=== PATIENT | male | born 1955 | race Caucasian/White ===

== ENCOUNTER 2017-09-24 19:53 | Inpatient (IN) | payer OTHER ==
[~2017-09-24] VITALS: Ht 180.3 cm; Wt 102.6 kg
[~2017-09-24 19:53] MED LIST: AMBIEN 5 MG TABL5 M1 PO; AUGMENTIN 875875 MG PO; BACTRIM DS TAB1 EACH PO; HYDROCODONE-AP1 EAC6 PO; IBUPROFEN 200200 M1 PO; LAMICTAL100 MG PO; LEVOTHYROXIN0.025 MG PO; LITHIUM CARBON300 M3 PO; MACROBID 100 M100 MG PO; NYSTATIN15 G3 TOP; OIL OF OREGAN1500 MG PO; OMEPRAZOLE20 M2 PO; OMEPRAZOLE40 MG PO; SIMVASTATIN40 MG PO; ULTRAM 50MG TAB50 MG PO; VENTOLIN HFA 1818 GM INH; ZPAK PO
[2017-09-24 20:01] VITALS: BP 166/84
[2017-09-24 20:56] LABS: HEMOGLOBIN 13.9 gm/dL (14.0-18.0); NUCLEATED RBCS 0 /100WBC
[2017-09-24 20:58] LABS: HEMATOCRIT 43.1 % (42.0-52.0); MCH 31.4 pg (26.0-34.0); MCHC 32.1 g/dL (28.0-37.0); MCV 97.6 fL (80.0-100.0); MPV 8.2 fl. (7.2-11.1); PLATELET COUNT* 340 thou/uL (150-400); RBC 4.41 mil/uL (4.50-6.00); WBC 10.8 thou/uL (4.0-11.0)
[2017-09-24 21:04] LABS: APTT 29.7 Seconds (25.0-31.3); CALCIUM 9.1 mg/dL (8.5-10.1); CREATININE 1.1 mg/dL (0.6-1.3); POTASSIUM 4.1 mmol/L (3.5-5.1)
[2017-09-24 21:08] LABS: ALBUMIN 3.3 g/dL (3.4-5.0); TOTAL BILIRUBIN 0.5 mg/dL (<0.1-1.0); TOTAL PROTEIN 7.8 g/dL (6.4-8.2)
[2017-09-24 21:25] LABS: ABSOLUTE BASOPHILS 0.1 thou/uL (0.0-0.2); ABSOLUTE EOSINOPHILS 0.2 thou/uL (0.0-0.7); ABSOLUTE LYMPHOCYTES 1.8 thou/uL (0.8-5.3); ABSOLUTE MONOCYTES 0.6 thou/uL (0.0-1.2)
[2017-09-24 21:26] LABS: PLATELET ESTIMATE ADEQUATE
[2017-09-24 23:00] VITALS: BP 130/68
[2017-09-24 23:10] VITALS: BP 133/91
[2017-09-25 09:09] LABS: ABSOLUTE BASOPHILS 0.2 thou/uL (0.0-0.2); ABSOLUTE EOSINOPHILS 0.3 thou/uL (0.0-0.7); ABSOLUTE LYMPHOCYTES 1.4 thou/uL (0.8-5.3); ABSOLUTE NEUTROPHILS 7.6 thou/uL (1.6-8.1); BASOPHILS 1.9 %; EOSINOPHILS 2.8 %; HEMATOCRIT 41.9 % (42.0-52.0); HEMOGLOBIN 13.5 gm/dL (14.0-18.0); LYMPHOCYTES 13.5 %; MCH 31.2 pg (26.0-34.0); MCHC 32.1 g/dL (28.0-37.0); MCV 97.3 fL (80.0-100.0); MONOCYTES 9.6 %; MPV 8.2 fl. (7.2-11.1); NUCLEATED RBCS 0 /100WBC; PLATELET COUNT* 317 thou/uL (150-400); POLYS 72.2 %; RBC 4.31 mil/uL (4.50-6.00); RDW-CV 14.1 % (10.5-14.5); WBC 10.5 thou/uL (4.0-11.0)
[2017-09-25 09:15] VITALS: BP 137/80
[2017-09-25 09:23] LABS: CALCIUM 8.6 mg/dL (8.5-10.1); CREATININE 1.1 mg/dL (0.6-1.3); POTASSIUM 4.7 mmol/L (3.5-5.1)
[2017-09-25 14:52] VITALS: BP 139/86
--- NOTE | 2017-09-25 16:44 | EKG ---
[place] [address] ELECTROCARDIOGRAM REPORT Name: AKBAR VALLADARES Room: [address] ADM IN .R.#: [id number] Admission: 09/24/17 Attend Phys: Juana Bolaños Discharge: Date of : 57 Report #: [id number] THIS REPORT FOR: //name// [facility] ED Test Date: 2017-09-24 Test Time: 20:42:23 Pat Name: AKBAR VALLADARES Department: Room: [facility] Gender: M [place] [employer]redge [employer] Barge: ADRIEN : 1955 Requested By: Billy Samayoa Order Number: [id number] MD: Jay Davidson Measurements Intervals [place] Rate: 99 P: 49 HI: 162 QRS: 90 QRSD: 110 T: -21 QT: 361 QTc: 464 Interpretive Statements Sinus rhythm early transition Probable inferior infarct, age indeterminate Baseline wander in lead(s) V3 No previous ECG available for comparison Electronically Signed On 09-25-2017 16:44:13 HOG STICKER by Jay Davidson [email or web address] <ELECTRONICALLY SIGNED> By: Jay Davidson MD, [facility] 09/25/17 1644 41 41 Jya Davidson MD, [facility] /EPI
[2017-09-26 00:24] VITALS: BP 184/85
[2017-09-26 02:07] LABS: GLYCOHEMOGLOBIN (HGB A1C) 5.5 % (4.8-5.6)
[2017-09-27] MEDS ORDERED: AUGMENTIN 875-1 EACH PO (13:58)
== END 2017-09-26 04:05 | disposition left against medical advice (07) | DRG 728 ==
LOC: M.ERS 19:53 → M.TBA-ER 21:22 → M.3W 21:22
PROVIDERS: Family Medicine; Internal Medicine; Physician Assistant; ADMIT Internal Medicine
PROC: 0H9AXZX Drainage of Inguinal Skin, External Approach, Diagnostic (ICD-10-PCS; principal; 2017-09-24)
DX: N48.22 Cellulitis of corpus cavernosum and penis (principal); E87.1 Hypo-osmolality and hyponatremia; N48.21 Abscess of corpus cavernosum and penis; E78.5 Hyperlipidemia, unspecified; K21.9 Gastro-esophageal reflux disease without esophagitis; E03.9 Hypothyroidism, unspecified; F31.9 Bipolar disorder, unspecified; F17.200 Nicotine dependence, unspecified, uncomplicated; Z23 Encounter for immunization; Z86.73 Personal history of transient ischemic attack (TIA), and cerebral infarction without residual deficits; Z90.49 Acquired absence of other specified parts of digestive tract; Z79.899 Other long term (current) drug therapy

== ENCOUNTER 2017-09-26 08:06 | Inpatient (IN) | payer OTHER ==
[~2017-09-26] VITALS: Ht 180.3 cm; Wt 102.5 kg
[2017-09-26 08:27] VITALS: BP 142/92
[2017-09-26 09:39] LABS: ABSOLUTE BASOPHILS 0.1 thou/uL (0.0-0.2); ABSOLUTE EOSINOPHILS 0.2 thou/uL (0.0-0.7); ABSOLUTE LYMPHOCYTES 1.4 thou/uL (0.8-5.3); ABSOLUTE MONOCYTES 0.7 thou/uL (0.0-1.2); ABSOLUTE NEUTROPHILS 6.9 thou/uL (1.6-8.1); EOSINOPHILS 2.1 %; HEMOGLOBIN 13.2 gm/dL (14.0-18.0); LYMPHOCYTES 15.1 %; MCH 31.5 pg (26.0-34.0); MCV 95.2 fL (80.0-100.0); MONOCYTES 7.7 %; MPV 7.8 fl. (7.2-11.1); NUCLEATED RBCS 0 /100WBC; PLATELET COUNT* 329 thou/uL (150-400); POLYS 74.1 %; RDW-CV 13.6 % (10.5-14.5); WBC 9.3 thou/uL (4.0-11.0)
[2017-09-26 09:54] LABS: ALBUMIN 2.9 g/dL (3.4-5.0); CALCIUM 8.8 mg/dL (8.5-10.1); POTASSIUM 4.1 mmol/L (3.5-5.1); TOTAL BILIRUBIN 0.2 mg/dL (<0.1-1.0); TOTAL PROTEIN 7.1 g/dL (6.4-8.2)
[2017-09-26 13:46] LABS: URINE BILIRUBIN NEGATIVE (Negative); URINE BLOOD NEGATIVE (Negative); URINE CLARITY CLEAR; URINE COLOR YELLOW; URINE GLUCOSE-RANDOM NEGATIVE (Negative); URINE KETONES NEGATIVE (Negative); URINE LEUKOCYTES NEGATIVE (Negative); URINE NITRITE NEGATIVE (Negative); URINE PROTEIN NEGATIVE (Negative); URINE SPECIFIC GRAVITY 1.015 (1.005-1.030); URINE UROBILINOGEN 0.2 E.U./dl (0.2-1.0)
[2017-09-26 13:57] VITALS: BP 144/78
[2017-09-26 17:52] VITALS: BP 133/72
[2017-09-26 18:15] VITALS: BP 140/73
[2017-09-26 23:00] VITALS: BP 142/83
[2017-09-27 05:57] LABS: ABSOLUTE BASOPHILS 0.1 thou/uL (0.0-0.2); ABSOLUTE EOSINOPHILS 0.3 thou/uL (0.0-0.7); ABSOLUTE LYMPHOCYTES 1.9 thou/uL (0.8-5.3); ABSOLUTE MONOCYTES 0.8 thou/uL (0.0-1.2); ABSOLUTE NEUTROPHILS 4.9 thou/uL (1.6-8.1); BASOPHILS 1.3 %; EOSINOPHILS 3.7 %; HEMATOCRIT 40.1 % (42.0-52.0); HEMOGLOBIN 13.3 gm/dL (14.0-18.0); LYMPHOCYTES 24.2 %; MCH 31.1 pg (26.0-34.0); MCHC 33.2 g/dL (28.0-37.0); MCV 93.8 fL (80.0-100.0); MONOCYTES 9.9 %; MPV 7.4 fl. (7.2-11.1); NUCLEATED RBCS 0 /100WBC; PLATELET COUNT* 337 thou/uL (150-400); POLYS 60.9 %; RBC 4.28 mil/uL (4.50-6.00); RDW-CV 13.4 % (10.5-14.5)
[2017-09-27 06:04] LABS: CALCIUM 8.8 mg/dL (8.5-10.1); POTASSIUM 4.6 mmol/L (3.5-5.1)
--- NOTE | 2017-09-27 10:50 | CON ---
[facility] [address] [place] [address] CONSULTATION Name: VALLADARESAKBAR Ridge Room: [address] IN M.R.#: [id number] Admission: 09/26/17 Attend Phys: Cleveland Bonilla MD Discharge: Date of : 57 Report #: [id number] THIS REPORT FOR: //name// CC: Cleveland Adams DATE OF SERVICE: 09/26/2017 INFECTIOUS DISEASE CONSULTATION ATTENDING PHYSICIAN: Cleveland Bonilla M.D. REASON FOR EVALUATION: Skin and soft tissue infection related to penis with abscess post-spontaneous drainage and operative debridement. HISTORY OF PRESENT ILLNESS: Chart reviewed, the patient examined. This is a 61-year-old apparently with history of bipolar disorder, who presented to the Emergency Room initially on 09/24/2017 and was hospitalized. He had to leave, but he returned 2 hours later yesterday. Over the last 7-10 days, he had noted initial papular-type lesion over the distal aspect of his penis along the shaft; this progressed. He had marked swelling, ultimately opened spontaneously. Blood cultures collected sterile thus far. There are no operative cultures. Empirically started on ceftriaxone and vancomycin. He denies any systemic illness. There is specific question about fevers and chills. Appetite has been good. No pulmonary or gastrointestinal-related complaints. ALLERGIES: None known. CURRENT MEDICATIONS: Include ceftriaxone, levothyroxine, lamotrigine, pantoprazole, zolpidem, enoxaparin, vancomycin and ondansetron. PAST MEDICAL HISTORY: History of a stroke, reflux, hyperlipidemia, hypothyroidism, bipolar and previous appendectomy. SOCIAL HISTORY: Smokes cigarettes, occasional ethanol. FAMILY HISTORY: Noncontributory. REVIEW OF SYSTEMS: As above. PHYSICAL EXAMINATION: GENERAL: He is pleasant, alert and cooperative. He is really in only mild distress, appears to be fairly well nourished. VITAL SIGNS: Temperature 99.7, pulse 90, respirations 16 and blood pressure 144/78. SKIN: Warm, [place] [address] CONSULTATION Name: AKBAR VALLADARES Ridge Room: [address] IN [facility]#: [id number] Admission: 09/26/17 Attend Phys: Cleveland Bonilla MD Discharge: Date of : 57 Report #: [id number] HEENT: Unremarkable. NECK: Supple. LUNGS: Clear to auscultation. HEART: Regular rate. I do not appreciate a murmur. ABDOMEN: Soft, nontender and nondistended. GENITALIA: Penis is markedly edematous. There is a lesion roughly 2 o'clock at the distal shaft. There is no overt purulence at this point. It does not particularly hurt him on palpation either. RECTAL: Deferred. LABORATORY DATA: Urinalysis negative. Lactic acid 1.0. Electrolytes: Sodium 140, potassium 4.1, chloride 105, bicarb is 25, BUN and creatinine 13 and 1.0, anion gap of 10 and glucose of 102. LFTs unremarkable. Albumin 2.9. Total protein 7.1. Estimated GFR of 76. CBC: White count 9.3, H and H 13.2 and 40.0 and platelets of 329,000. Blood cultures sterile thus far on occasions from 09/24/2017 as well as 09/26/2017 thus far. Hemoglobin A1c of 5.5. ASSESSMENT AND PLAN: Skin and soft tissue infection with abscess related to the penis. We will continue empiric antimicrobial therapy. Presume this is skin related. Presume Staph or strep etiology. It is presently minimally symptomatic at this point. Continue Pepcid, elevation of the penis and wound care as prescribed. <ELECTRONICALLY SIGNED> By: Umer Banuelos MD 09/27/17 1050 [id number] [id number] Banuelos MD /nt
[2017-09-27 12:13] VITALS: BP 142/83
[2017-09-27 12:55] VITALS: BP 156/91
[2017-09-27] MEDS ORDERED: AUGMENTIN 875-1 EACH PO (13:58)
== END 2017-09-27 14:30 | disposition home or self-care (01) | DRG 728 ==
LOC: M.ERS 08:06 → M.TBA-ER 09:14 → M.3W 09:14
PROVIDERS: Emergency Medicine Emergency Medical Services; Physician Assistant; ADMIT Internal Medicine
DX: N48.21 Abscess of corpus cavernosum and penis (principal); R65.10 Systemic inflammatory response syndrome (SIRS) of non-infectious origin without acute organ dysfunction; E78.5 Hyperlipidemia, unspecified; K21.9 Gastro-esophageal reflux disease without esophagitis; E03.9 Hypothyroidism, unspecified; F31.9 Bipolar disorder, unspecified; F17.210 Nicotine dependence, cigarettes, uncomplicated; Z86.73 Personal history of transient ischemic attack (TIA), and cerebral infarction without residual deficits; Z90.49 Acquired absence of other specified parts of digestive tract; Z79.899 Other long term (current) drug therapy

== ENCOUNTER 2019-01-07 17:16 | Inpatient (IN) | payer OTHER ==
[~2019-01-07] VITALS: Ht 180.3 cm; Wt 93.0 kg
[~2019-01-07 17:16] MED LIST changes: +AUGMENTIN 875-1 EACH PO
[2019-01-07 17:20] VITALS: BP 156/88
[2019-01-07 18:02] LABS: HEMATOCRIT 42.1 % (42.0-52.0); HEMOGLOBIN 14.2 gm/dL (14.0-18.0); MCH 29.8 pg (26.0-34.0); MCHC 33.6 g/dL (28.0-37.0); MCV 88.9 fL (80.0-100.0); MPV 7.2 fl. (7.2-11.1); NUCLEATED RBCS 0 /100WBC; PLATELET COUNT* 322 thou/uL (150-400); RBC 4.74 mil/uL (4.50-6.00); RDW-CV 14.7 % (10.5-14.5); WBC 21.1 thou/uL (4.0-11.0)
[2019-01-07 18:12] LABS: CALCIUM 9.1 mg/dL (8.5-10.1); CREATININE 1.2 mg/dL (0.6-1.3); POTASSIUM 4.2 mmol/L (3.5-5.1)
[2019-01-07 18:16] LABS: ALBUMIN 3.2 g/dL (3.4-5.0); TOTAL PROTEIN 8.9 g/dL (6.4-8.2)
[2019-01-07 18:21] LABS: ABSOLUTE LYMPHOCYTES 2.1 thou/uL (0.8-5.3); ABSOLUTE MONOCYTES 1.1 thou/uL (0.0-1.2); ABSOLUTE NEUTROPHILS 17.9 thou/uL (1.6-8.1); PLATELET ESTIMATE ADEQUATE
--- NOTE | 2019-01-07 18:55 | NUR ---
REPORT GIVEN TO ALICIA BOWENS WHO IS TO ASSUME PT CARE AT THIS TIME.
[2019-01-07 19:58] VITALS: BP 149/84
[2019-01-07 20:15] VITALS: BP 107/64
[2019-01-08] VITALS: BP 125/72
[2019-01-08 04:15] LABS: HEMOGLOBIN 12.5 gm/dL (14.0-18.0); MCH 29.3 pg (26.0-34.0); MCHC 32.8 g/dL (28.0-37.0); MCV 89.2 fL (80.0-100.0); MPV 7.7 fl. (7.2-11.1); RBC 4.26 mil/uL (4.50-6.00); RDW-CV 14.7 % (10.5-14.5); WBC 16.4 thou/uL (4.0-11.0)
[2019-01-08 04:40] LABS: ALBUMIN 2.3 g/dL (3.4-5.0); CALCIUM 8.8 mg/dL (8.5-10.1); CREATININE 1.1 mg/dL (0.6-1.3); MAGNESIUM 1.5 mg/dL (1.8-2.4); POTASSIUM 3.8 mmol/L (3.5-5.1); TOTAL BILIRUBIN 0.9 mg/dL (<0.1-1.0); TOTAL PROTEIN 7.6 g/dL (6.4-8.2)
--- NOTE | 2019-01-08 06:05 | NUR ---
PATIENT ARRIVED ON FLOOR FROM ER ABOUT 2014. PATIENT ADMISSION HISTORY AND ASSESSMENT WAS COMPLETED CHARTED. IV VANC WAS GIVEN ORDERED. PATIENT HAD A TEMP OF 101 UPON ARRIVAL.TYLENOL WAS GIVEN TEMP CAME DOWN TO NORMAL. PICTURES WERE TAKEN OF LEFT LEG CELLULITIS AND PLACED ON CHART. WILL CONTINUE TO MONITOR.
[2019-01-08 09:00] VITALS: BP 118/68
[2019-01-08 13:08] LABS: AMP/METHAMP POSITIVE (Negative); BARBITURATES Negative (Negative); BENZODIAZEPINES Negative (Negative); COCAINE Negative (Negative); METHADONE Negative (Negative); OPIATES Negative (Negative); PCP Negative (Negative); THC Negative (Negative)
--- NOTE | 2019-01-08 15:50 | NUR ---
SW met with pt to complete initial assessment, introduce self, and SW role. Pt alert, oriented. Pt lives at home with a friend/roommate. Pt does not have any DME or hx of HH. Pt is unsure of any dc needs at this time. SW to continue to follow to assist with safe dc planning.
[2019-01-08 16:20] VITALS: BP 113/67
--- NOTE | 2019-01-08 19:34 | NUR ---
I ASSUMED CARE OF THE PATIENT AT 0700. HE IS ALERT AND ORIENTED X4 AND IS UP AD TORI. HE IS ON ROOM AIR, BED IS IN THE LOW LOCKED POSITION AND CALL LIGHT IS IN REACH. HOURLY ROUNDING WAS COMPLETED AND PATIENT NEEDS ARE MET. BED ALARM IS ON. MAG WAS REPLACED. LINENS WERE CHANGED. HE WAS SEEN BY ID. TOX SCREEN CAME BACK POSITIVE. DVT IS NEGATIVE. WILL CONTINUE TO MONITOR.
[2019-01-08 20:00] VITALS: BP 112/63
[2019-01-09 04:41] LABS: ABSOLUTE EOSINOPHILS 0.1 thou/uL (0.0-0.7); ABSOLUTE LYMPHOCYTES 1.5 thou/uL (0.8-5.3); ABSOLUTE MONOCYTES 1.1 thou/uL (0.0-1.2); ABSOLUTE NEUTROPHILS 9.3 thou/uL (1.6-8.1); BASOPHILS 0.3 %; HEMATOCRIT 34.8 % (42.0-52.0); HEMOGLOBIN 11.6 gm/dL (14.0-18.0); LYMPHOCYTES 12.2 %; MCH 29.8 pg (26.0-34.0); MCHC 33.3 g/dL (28.0-37.0); MCV 89.6 fL (80.0-100.0); MONOCYTES 9.5 %; MPV 7.6 fl. (7.2-11.1); NUCLEATED RBCS 0 /100WBC; PLATELET COUNT* 281 thou/uL (150-400); RBC 3.88 mil/uL (4.50-6.00); RDW-CV 14.8 % (10.5-14.5); WBC 12.1 thou/uL (4.0-11.0)
[2019-01-09 04:54] LABS: CALCIUM 8.7 mg/dL (8.5-10.1); CREATININE 0.9 mg/dL (0.6-1.3); POTASSIUM 4.1 mmol/L (3.5-5.1)
--- NOTE | 2019-01-09 05:50 | NUR ---
Alert and oriented x 4. He has open wounds to his LLE and it is red and edemedous. He does have scarring from other wounds and scabs on both LE's. Mg+ redraw done at 2200 and he was still low, 800mg given at 0000. Mg+ drawn this am and it was 1.9. He has been voiing per urinal,adequate amount. Nasal swab to check for MRSA sent this am with am labs. He had pain meds x 2, at HS and this am.
[2019-01-09 07:48] VITALS: BP 119/70
--- NOTE | 2019-01-09 12:24 | CON ---
[address] [address] CONSULTATION Name: AKBAR VALLADARES Room: [address] IN M.R.#: [id number] Admission: 01/07/19 Attend Phys: Francheska Cooley MD Discharge: Date of : 57 Report #: [id number] THIS REPORT FOR: //name// CC: Jay Cooley DATE OF SERVICE: 01/08/2019 INFECTIOUS DISEASE CONSULTATION: ATTENDING PHYSICIAN: Dr. Cooley. REASON FOR EVALUATION: Right lower extremity cellulitis. HISTORY OF PRESENT ILLNESS: Chart reviewed, patient examined. This is a 63-year-old gentleman with a history of Morgellons disease, also has some vasculopathy who noted increasing inflammation associated with pain, swelling, redness of his left lower extremity. His onset was several days prior to his admission and became difficult to ambulate. Does report some fevers with associated chills. He had a recorded temperature of 101 while here, had some anorexia with poor p.o. intake. Denies significant pulmonary-related complaints. As noted above, he has history of Morgellons. He clearly has multiple areas that appear to be in part related with scarring, open areas along his lower extremities, in particular his left side and have additional lesion on his hands as well. Blood cultures were collected on the and are sterile thus far. Empirically started on combination therapy with ceftriaxone as well as vancomycin. ALLERGIES: None known. MEDICATIONS: Include hydrocodone, fentanyl, hydralazine, ceftriaxone, pantoprazole, vancomycin, enoxaparin. PAST MEDICAL HISTORY: Morgellons disease, history of stroke, gastroesophageal reflux disease, hypothyroidism, bipolar disease, prostatic enlargement, previous appendectomy and left knee arthroscopic procedure, previous history of skin and soft tissue infection. SOCIAL HISTORY: Occasional ethanol, nonsmoker. Denies illicit drug use. FAMILY HISTORY: Noncontributory. REVIEW OF SYSTEMS: Otherwise, unremarkable 10-point review of systems, with the exception noted above in the history of present illness. PHYSICAL EXAMINATION: [place] [address] CONSULTATION Name: AKBAR VALLADARES Ridge Room: [address] IN [facility]#: [id number] Admission: 01/07/19 Attend Phys: Francheska Cooley MD Discharge: Date of : 57 Report #: [id number] GENERAL: He appears somewhat chronically ill, is pleasant, cooperative, qkvg-gr-yukrohew distress, mildly undernourished. VITAL SIGNS: Temperature 97.8 with a T-max overnight 101, pulse 80, respirations 17, blood pressure 120/72. SKIN: Warm, has multiple excoriated lesions, abrasions, chronic scarring about the distal limbs primarily lower extremities as well as in the suprapubic region. HEENT: Normocephalic. Extraocular muscles intact. NECK: Supple. LUNGS: Diminished breath sounds. HEART: Regular. I do not appreciate murmur. ABDOMEN: Soft, nontender, no peritoneal signs. EXTREMITIES: Moderate to marked inflammatory changes. There is again several areas of superficial ulceration in the setting of scarring at sites, is quite tender to palpation. Distal pulses seem to be normal. GENITOURINARY: Deferred. RECTAL: Deferred. LABORATORY DATA: Electrolytes: Sodium 130, potassium 4.2, chloride 92, bicarbonate is 26, BUN and creatinine 22 and 1.2, glucose of 89. Liver functions unremarkable. Total protein of 8.9, albumin of 3.2. Lactic acid initially 1.5. CBC: White count 21.1, H and H 14.2 and 42.1, platelets of 322, neutrophilia 18,000, repeat total white count was 16.4. Blood cultures are sterile thus far. There have been positive drug screens for amphetamine, methamphetamine. ASSESSMENT: Left lower extremity inflammatory eruption, skin and soft tissue infection. I presume in spite of the diagnosis of Morgellons, this is likely a secondary bacterial skin and soft tissue infection. At this point, I do not see any abscess. We will continue combination therapy. Await blood cultures, although I suspect fairly low yield. Did encourage him to elevate. We did discuss compression as well. It is not clear that he is willing to do that at this point. We will monitor expectantly. <ELECTRONICALLY SIGNED> By: Umer Banuelos MD 01/09/19 1224 [id number] [id number] Banuelos MD /nt
--- NOTE | 2019-01-09 16:25 | NUR ---
ASSUMED CARE OF PT AROUND 0730 THIS AM. REFER TO ASSESSMENT. PT PROGRESSING TOWARDS GOALS THIS SHIFT. AFEBRILE. IV ABTS INFUSED PRESCRIBED. PT HAS NO C/O PAIN. NO OTHER CONCERNS AT THIS TIME. CLWR. WCTM.
[2019-01-09 17:41] VITALS: BP 127/70
[2019-01-09 20:00] VITALS: BP 146/84
[2019-01-10 03:59] LABS: ABSOLUTE BASOPHILS 0.1 thou/uL (0.0-0.2); ABSOLUTE EOSINOPHILS 0.2 thou/uL (0.0-0.7); ABSOLUTE LYMPHOCYTES 1.4 thou/uL (0.8-5.3); ABSOLUTE MONOCYTES 0.8 thou/uL (0.0-1.2); ABSOLUTE NEUTROPHILS 5.7 thou/uL (1.6-8.1); BASOPHILS 0.6 %; EOSINOPHILS 2.4 %; HEMATOCRIT 35.5 % (42.0-52.0); HEMOGLOBIN 12.1 gm/dL (14.0-18.0); LYMPHOCYTES 17.7 %; MCH 30.6 pg (26.0-34.0); MCHC 34.2 g/dL (28.0-37.0); MCV 89.6 fL (80.0-100.0); MONOCYTES 9.5 %; MPV 7.4 fl. (7.2-11.1); NUCLEATED RBCS 0 /100WBC; PLATELET COUNT* 327 thou/uL (150-400); POLYS 69.8 %; RBC 3.96 mil/uL (4.50-6.00); RDW-CV 14.7 % (10.5-14.5); WBC 8.2 thou/uL (4.0-11.0)
[2019-01-10 04:25] LABS: CALCIUM 8.7 mg/dL (8.5-10.1); POTASSIUM 3.9 mmol/L (3.5-5.1)
--- NOTE | 2019-01-10 06:44 | NUR ---
Alert and oriented x 4. Les still red and LLE more edemedous than RLE. His vitals are stable. He had pain meds x 2. He states he didn't sleep well but when I checked on him he was sleeping.
[2019-01-10 08:15] VITALS: BP 132/92
--- NOTE | 2019-01-10 16:25 | NUR ---
PT.PLANS TO GO HOME AT DISCHARGE. HIS FRIEND CAN ASSIST HIM IF NEEDED. NURSING SAID HE IS UP AD TORI IN ROOM. HAS TUBIGRIP STOCKINGS. SHE FEELS HE CAN APPLY THESE AND NOT NEED HOME HEALTH.
--- NOTE | 2019-01-10 16:36 | NUR ---
PT REMAINED ALERT AND ORIENTED. PT RESTING IN BED. PT STATES NO FURTHER NEEDS AT THIS TIME. TUBIGRIPS APPLIED ORDERED. ORAL ABX STARTED. FALL RISK PRECAUTIONS IN PLACE. HOURLY ROUNDING COMPLETED. WILL CONTINUE TO MONITOR.
[2019-01-10 22:15] VITALS: BP 154/87
[2019-01-11 04:32] LABS: ABSOLUTE BASOPHILS 0.1 thou/uL (0.0-0.2); ABSOLUTE EOSINOPHILS 0.2 thou/uL (0.0-0.7); ABSOLUTE LYMPHOCYTES 1.5 thou/uL (0.8-5.3); ABSOLUTE MONOCYTES 0.8 thou/uL (0.0-1.2); ABSOLUTE NEUTROPHILS 6.9 thou/uL (1.6-8.1); BASOPHILS 1.1 %; EOSINOPHILS 2.2 %; HEMOGLOBIN 12.7 gm/dL (14.0-18.0); LYMPHOCYTES 15.5 %; MCH 29.9 pg (26.0-34.0); MCHC 33.4 g/dL (28.0-37.0); MCV 89.4 fL (80.0-100.0); MONOCYTES 8.2 %; MPV 7.9 fl. (7.2-11.1); NUCLEATED RBCS 0 /100WBC; RBC 4.25 mil/uL (4.50-6.00); RDW-CV 14.9 % (10.5-14.5); WBC 9.4 thou/uL (4.0-11.0)
[2019-01-11 04:50] LABS: CREATININE 0.9 mg/dL (0.6-1.3); POTASSIUM 3.9 mmol/L (3.5-5.1)
[2019-01-11 04:54] LABS: PLATELET COUNT* 407 thou/uL (150-400)
--- NOTE | 2019-01-11 06:39 | NUR ---
vitals stable, afebrile. patient sleeping through the night. At about 0300 am pt requests something for pain and sleep. shortly after, went to pt's room to inform him he can have benadryl and noticed pt was sleeping. about 30 mins after that, pt called compalining of pain and unhappy that i did not wake him up to give him his pills. pt very agitated and cursing. reports he has been miserable all night long. when i asked why he didn't inform me of his dicomfort, he states "even if i was probably having my eyes closed, i was still in pain and wondering when anyone would be checking on me." Informed patient hourly rounding has been done on him and he was sleeping the whole time. pt very agitated and unhappy, getting very loud and cursing. security at bedside, but the situation did not escalate. pt calmed down a few minutes later and apologized to this rn. reports he was just in pain and wanted it to go away. pt denies pain at this time, sleeping in bed. call light within reach.
[2019-01-11 07:20] VITALS: BP 144/86
[2019-01-11] MEDS ORDERED: HYDROCODON-ACE1 EAC7 PO (08:12)
[2019-01-11] MEDS ORDERED: DYNACIN100 MG PO (08:12)
[2019-01-11 09:41] VITALS: BP 144/86
[2019-01-11 10:26] VITALS: BP 144/86
--- NOTE | 2019-01-11 10:27 | NUR ---
PT GIVEN DISCHARGE INFORMATION, CARE NOTES, AND PRESCRIPTIONS. IV REMOVED. PICTURES TAKEN OF WOUNDS. TUBIGRIPS IN PLACE WITH PATIENT. PT BELONGINGS GATHERED. FALL RISK PRECAUTIONS IN PLACE. HOURLY ROUNDING COMPLETED. PT LEFT VIA WHEELCHAIR WITH NURSING STAFF TO HOME WITH UNRELATED ADULT.
== END 2019-01-11 10:28 | disposition home or self-care (01) | DRG 872 ==
LOC: M.ERS 17:16 → M.ORTHSURG 18:52 → M.TBA-ER 18:52 → M.ORTHSURG 20:14
PROVIDERS: Internal Medicine; Physician Assistant; ADMIT Internal Medicine
DX: A41.9 Sepsis, unspecified organism (principal); L03.116 Cellulitis of left lower limb; E44.1 Mild protein-calorie malnutrition; E78.5 Hyperlipidemia, unspecified; K21.9 Gastro-esophageal reflux disease without esophagitis; E03.9 Hypothyroidism, unspecified; F31.9 Bipolar disorder, unspecified; L90.8 Other atrophic disorders of skin; F22 Delusional disorders; Z79.899 Other long term (current) drug therapy; Z86.73 Personal history of transient ischemic attack (TIA), and cerebral infarction without residual deficits; Z90.49 Acquired absence of other specified parts of digestive tract; Z68.28 Body mass index [BMI] 28.0-28.9, adult

== ENCOUNTER 2020-01-06 16:52 | Emergency (ER) | payer MEDICARE ==
[~2020-01-06] VITALS: Ht 180.3 cm; Wt 108.9 kg
[~2020-01-06 16:52] MED LIST changes: +DYNACIN100 MG PO; +HYDROCODON-ACE1 EAC7 PO
[2020-01-06] MEDS ORDERED: NORCO 5-325 TA1 EAC1 PO (17:45)
[2020-01-06] MEDS ORDERED: CIPRO500 MG PO (17:45)
[2020-01-06 18:03] VITALS: BP 142/68
== END 2020-01-06 18:03 | disposition home or self-care (01) ==
LOC: M.ERS 16:52
DX: S91.332A Puncture wound without foreign body, left foot, initial encounter (principal); K21.9 Gastro-esophageal reflux disease without esophagitis; E78.5 Hyperlipidemia, unspecified; E03.9 Hypothyroidism, unspecified; N40.0 Benign prostatic hyperplasia without lower urinary tract symptoms; Z90.49 Acquired absence of other specified parts of digestive tract; Z86.73 Personal history of transient ischemic attack (TIA), and cerebral infarction without residual deficits; W22.8XXA Striking against or struck by other objects, initial encounter; Y93.89 Activity, other specified; Y92.89 Other specified places as the place of occurrence of the external cause; Y99.8 Other external cause status